=== PATIENT | male | born 1980 | race Caucasian/White ===

== ENCOUNTER 2025-05-18 10:43 | Emergency (ER) | payer BC ==
[2025-05-18] MEDS ORDERED: Sodium Chloride 0.9% 10 ML Syringe FLUSH PRN (11:19)
[2025-05-18] MEDS: MVI, Adult with Vitamin K 10 ML, Folic Acid 1 MG, Thiamine 100 MG in Lactated Ringers 1... IV ONE (11:52)
[2025-05-18 12:20] LABS: INR 1.1 (0.9-1.2); LACTIC ACID 2.8 mmol/L (0.4-2.0); PTT,PARTIAL THROMBOPLSTIN TIME 25.1 SEC (22.0-34.0)
[2025-05-18 12:41] LABS: TSH ULTRASENSITIVE 3.60 uIU/mL (0.36-3.74)
[2025-05-18 12:50] LABS: ETHANOL BLOOD MEDICAL < 3 mg/dL (0)
[2025-05-18] MEDS: Magnesium Sulfate 2 GM/50 mL 2 GM in Premix Bag 1 BAG IV ONE (13:17)
[2025-05-18 13:25] LABS: APPEARANCE,URINE SLIGHTLY CLOUDY (CLEAR); GLUCOSE,URINE NEGATIVE (NEGATIVE); OCCULT BLOOD,URINE TRACE-INTACT (NEGATIVE)
[2025-05-18 13:31] LABS: AMPHETAMINES,URINE NEGATIVE (NEGATIVE); BARBITURATES,URINE NEGATIVE (NEGATIVE); MDMA (ECSTASY), URINE NEGATIVE (NEGATIVE); METHAMPHETAMINES,URINE NEGATIVE (NEGATIVE); OPIATES,URINE NEGATIVE (NEGATIVE); OXYCODONE,URINE NEGATIVE (NEGATIVE); PHENCYCLIDINE,URINE NEGATIVE (NEGATIVE); TCA,URINE NEGATIVE (NEGATIVE)
[2025-05-18 13:35] LABS: EPITHELIAL CELLS,URINE RARE /HPF (NOT SEEN)
== END 2025-05-18 14:24 | disposition home or self-care (01) ==
LOC: DL.ED 10:43
DX: R29.898 Other symptoms and signs involving the musculoskeletal system (principal); S22.49XA Multiple fractures of ribs, unspecified side, initial encounter for closed fracture; R00.0 Tachycardia, unspecified; E83.42 Hypomagnesemia; F10.10 Alcohol abuse, uncomplicated; E86.0 Dehydration; Z88.0 Allergy status to penicillin; X58.XXXA Exposure to other specified factors, initial encounter
CPT/HCPCS: 36415; 70450; 80305; 80307; 81001; 82140; 82607; 83605; 83690; 83735; 84443; 84484; 85610; 85730; 86140; 93005; 96365; 96367; 99285; A9270; J1808; J3411; J3475; J7120; J3490